=== PATIENT | male | born 1980 | race Caucasian/White ===

== ENCOUNTER 2023-06-03 06:58 | Outpatient (CLI) | payer BC ==
[~2023-06-03] VITALS: Ht 172.7 cm; Wt 149.7 kg
[2023-06-03 07:21] LABS: TOTAL HEMOGLOBIN 16.5 G/dl (14.0-17.9)
[2023-06-03] MEDS: albuterol 2.5 MG/3 ML nebule NEB ONE (07:55)
[2023-06-03 07:58] VITALS: PULSE 79; RESP 15; O2SAT 95
== END 2023-06-03 23:59 | disposition home or self-care (01) ==
LOC: RT 06:58
PROVIDERS: ATTEND Internal Medicine Pulmonary Disease
DX: R06.02 Shortness of breath (principal); E66.9 Obesity, unspecified
CPT/HCPCS: 85018; 94060; 94727; 94729; 94760